=== PATIENT | female | born 1980 | race Caucasian/White ===

== ENCOUNTER 2024-01-19 08:34 | Emergency (ER) | payer OTHER ==
--- OUTSIDE RECORDS SUMMARY | 2024-01-19 08:39 | XMS REPORT | Continuity of Care Document ---
Author Name Unknown Address [address] [place] [address] [facility] Address [address] [place] [address] Care Team Providers Care Open Die Inspector Name Role Phone PALOMA CORTES Primary Care Physician Unavaila Ronal Dunn Attending Clinician Unavailable Paloma Cortes Attending Clinician [phone] PALOMA CORTES Attending Clinician Unavailable Doctor Unassigned, [place] Attending Clinician U Keren Brown MD Attending Clinician [phone] KEREN RIOJAS Attending Clinician UnavailPALOMA Hudson Admitting Clinician Unavailable Brenda Cortes Admitting Clinician Unavaildevin brooks Payers Payer Name Policy Type Policy Number Effective Date Expirati on Date Source Allergies, Adverse Reactions, Alerts Allergy Name Allergy Type Status Severity Reaction(s) Onset Date Inactive Date Treating Clinician Comments Source No Known Allergie s DA Active U 02-07 00:00: 00 [facility] No Known Allergie s DA Active U 02-07 00:00: 00 [facility] NO KNOWN ALLERGIE S Drug Class Active [facility] Social History Social Habit Start Date Stop Date Quantity Comments Source Exposure to SARS-CoV-2 (event) Not sure [facility] Tobacco use and exposure 2020-02-02 00:00:00 2020-02-02 00:00:00 Never used [facility] Tobacco Comment 2020-02-02 00:00:00 2020-02-02 00:00:00 PtDeborah Gibbons [facility] Sex Assigned At 1980 00:00:00 1980 00:00:00 [facility] Smoking Status Start Date Stop Date Source Current every day smoker 2020-02-02 00:00:00 [facility] Medications Ordered Medication Name Filled Medication Name Start Date Stop Date Current Medication? Ordering Clinician Indication Dosage Frequency Signature (SIG) Comments Components Source diclofenac 75 mg EC tablet 03-22 00:00: 00 Yes 75mg Take 1 tablet by mouth 2 (two) times daily with meals. [facility] COSENTYX PEN, 2 PENS, 150 mg/mL SC injection 01-31 00:00: [address] [facility] No known medications No Un rick [facility] No known medications No Un r[facility] Vital Signs Vital Name Observation Time Observation Value Comments S ource Systolic blood pressure 2020-03-22 20:47:00 103 mm[Hg] [facility] Diastolic blood pressure 2020-03-22 20:47:00 71 mm[Hg] [facility] Heart rate 2020-03-22 20:47:00 81 /min Unive [facility] Body weight 2020-03-22 20:47:00 52.617 kg [facility] BMI 2020-03-22 20:47:00 17.64 kg/m2 [facility] Systolic blood pressure 2020-03-22 20:47:00 103 mm[Hg] [facility] Diastolic blood pressure 2020-03-22 20:47:00 71 mm[Hg] [facility] Heart rate 2020-03-22 20:47:00 81 /min Un[facility] Body weight 2020-03-22 20:47:00 52.617 kg [facility] BMI 2020-03-22 20:47:00 17.64 kg/m2 [facility] Systolic blood pressure 2020-02-24 13:18:00 110 mm[Hg] [facility] Diastolic blood pressure 2020-02-24 13:18:00 73 mm[Hg] [facility] Heart rate 2020-02-24 13:18:00 82 /min Unive [facility] Body height 2020-02-24 13:18:00 172.7 cm [facility] Body weight 2020-02-24 13:18:00 52.617 kg [facility] BMI 2020-02-24 13:18:00 17.64 kg/m2 [facility] Systolic blood pressure 2020-02-02 20:18:00 118 mm[Hg] [facility] Diastolic blood pressure 2020-02-02 20:18:00 76 mm[Hg] [facility] Heart rate 2020-02-02 20:18:00 82 /min Unive [facility] Body height 2020-02-02 20:18:00 172 cm [facility] Body weight 2020-02-02 20:18:00 53.071 kg [facility] BMI 2020-02-02 20:18:00 17.94 kg/m2 [facility] Procedures Procedure Date / Time Performed Performing Clinicia n Source ASSIGNMENT OF BENEFITS 2021-10-19 12:45:06 Docto r Unassigned, [place] [facility] REFERRAL- REQUEST/RESPONSE 2020-03-17 05:01:00 Doctor Unassigned, [place] [facility] Encounters Start Date/Time End Date/Time Encounter Type Admission Type Attending Clinicians Care Facility Care Department Encounter ID Source 2022-05-07 12:53:00 2022-05-07 12:53:00 Outpatient PratikRonal [facility] [id number] [facility] 2021-10-19 07:46:20 2021-10-19 23:59:00 Hospital Encounter Paloma Cortes [facility] 1.2.840.114 350.1.13.10 4.2.7.2.[id number] [facility] 2021-10-19 07:46:20 2021-10-19 23:59:00 Outpatient PALOMA GUNTER [facility] [id number] [facility] 2021-10-19 00:00:00 2021-10-19 00:00:00 Orders Only Doctor Unassigned, [place] [facility] 1.2.840.114 350.1.13.10 4.2.7.2.[id number] [facility] 2021-10-11 15:00:00 2021-10-11 15:00:00 Outpatient PALOMA GUNTER [facility] RAD [id number] [facility] 2021-02-09 07:15:00 2021-02-09 07:15:00 Inpatient Ronal Ibrahim [facility] DAYS [id number] [facility] 2020-09-25 17:51:12 2020-09-25 23:59:00 Hospital Encounter Paloma Cortes [facility] 1.2.840.114 350.1.13.10 4.2.7.2.[id number] [facility] 2020-09-25 17:51:12 2020-09-25 23:59:00 Hospital Encounter Paloma Cortes [facility] 1.2.840.114 350.1.13.10 4.2.7.2.686 [id number] 2020-09-25 00:00:00 2020-09-25 00:00:00 Outpatient PALOMA GUNTER [facility] [id number] [facility] 2020-03-22 16:05:50 2020-03-22 23:59:00 Hospital Encounter Keren Riojas [facility] 1.2.840.114 350.1.13.10 4.2.7.2.[id number] [facility] 2020-03-22 15:21:19 2020-03-22 16:54:53 Office Visit Keren Riojas [facility] [place] 1.2.840.114 350.1.13.10 4.2.7.2.686 [id number] 2020-03-22 15:21:19 2020-03-22 16:54:53 Office Visit Keren Riojas [facility] [place] 1.2.840.114 350.1.13.10 4.2.7.2.[id number] [facility] 2020-03-22 16:00:53 2020-03-22 16:04:00 Hospital Encounter Keren Riojas [facility] [place] 1.2.840.114 350.1.13.10 4.2.7.2.[id number] [facility] 2020-03-22 15:30:00 2020-03-22 15:30:00 Outpatient R KEREN RIOJAS [facility] [id number] [facility] 2020-03-17 00:00:00 2020-03-17 00:00:00 Orders Only Doctor Unassigned, [place] [facility] 1.2.840.114 350.1.13.10 4.2.7.2.[id number] [facility] 2020-02-24 08:31:01 2020-02-24 23:59:00 Hospital Encounter Keren Riojas [facility] [place] 1.2.840.114 350.1.13.10 4.2.7.2.[id number] [facility] 2020-02-24 08:05:44 2020-02-24 08:41:46 Office Visit Keren Riojas [facility] [place] 1.2.840.114 350.1.13.10 4.2.7.2.[id number] [facility] 2020-02-24 08:15:00 2020-02-24 08:15:00 Outpatient R KEREN RIOJAS [facility] [id number] [facility] 2020-02-02 15:11:28 2020-02-02 15:35:14 Office Visit Keren Riojas [facility] [place] 1.2.840.114 350.1.13.10 4.2.7.2.[id number] [facility] 2020-02-02 15:15:00 2020-02-02 15:15:00 Outpatient KEREN PRAKASH [facility] [id number] [facility] Results Test Description Test Time Test Comments Results Result Co mments Source COVID 19 Asymptomatic IH [id number] 08:03:00* Test Item Value Reference Range Interpretation Comme nts COVID 19 Asymptomatic IH AG (test code = COVNONPUIAG) NEGATIVE NEGATIVE This test has be en authorized only for the detection ofproteins from SARS-CoV-2, not for any other viruses orpathogens. Negative results should be treated as presumptive andconfirmed with a molecular assay, if necessary for patientmanagement. Negative results do not rule out COVID-19 andshould not be used as the sole basis for treatment orpatient management decisions, including infection controldecisions. Negative results should be considered in thecontext of a patient's recent exposures, history and thepresence of clinical signs and symptoms consistent withCOVID-19. This test has not been FDA cleared or approved; the test hasbeen authorized by FDA under an Emergency Use Authorization(EUA) for use by laboratories certified under the CLIA thatmeet the requirements to perform moderate, high or waivedcomplexity tests. This test is authorized for use at thePoint of Care (POC), i.e., in patient care settingsoperating under a CLIA Certificate of Waiver, Certificate ofCompliance, or Certificate of Accreditation. This test is only authorized for the duration of thedeclaration that circumstances exist justifying theauthorization of emergency use of in vitro diagnostic testsfor detection and/or diagnosis of COVID-19 under Pqiffdq352(b)(1) of the Act, 21 U.S.C. 360bbb-3(b)(1), unless theauthorization is terminated or revoked sooner. HCG SERUM [id number] 16:45:00* Test Item Value Reference Range Interpretation Comme nts HCG SERUM QUAL (test code = HCGQL) NEGATIVE CBC W/AUTO [id number] 16:44:00* Test Item Value Reference Range Interpretation Comme nts WHITE BLOOD CELL (test code = WBC) 3.6 K/mm3 6.5-12.3 L RED BLOOD CELL (test code = RBC) 3.99 M/mm3 3.51-4.69 N HEMOGLOBIN (test code = HGB) 12.1 g/dL 10.1-13.8 N HEMATOCRIT (test code = HCT) 37.5 % 32.5-41.8 N MEAN CELL VOLUME (test code = MCV) 94.0 fL 84.6-96.6 N MEAN CELL HGB (test code = MCH) 30.3 pg 27.3-33.9 N MEAN CELL HGB CONCETRATION ( test code = MCHC) 32.3 gm/dL 32.0-34.2 N RED CELL DISTRIBUTION WIDTH (test code = RDW) 11.6 % 12.2-16.3 L PLATELET COUNT (test code = PLT) 203 K/mm3 134-363 N MEAN PLATELET VOLUME (test c ode = MPV) 10.9 fL 9.2-12.7 N NEUTROPHIL % (test code = NT%) 73.2 % 57.9-77.3 N LYMPHOCYTE % (test code = LY%) 17.0 % 14.5-29.7 N MONOCYTE % (test code = MO%) 8.9 % 3.6-10.2 N EOSINOPHIL % (test code = EO%) 0.3 % 0.0-3.0 N BASOPHIL % (test code = BA%) 0.3 % 0.1-0.9 N NEUTROPHIL # (test code = NT#) 2.6 K/mm3 LYMPHOCYTE # (test code = LY#) 0.6 K/mm3 MONOCYTE # (test code = MO#) 0.3 K/mm3 EOSINOPHIL # (test code = EO#) 0.01 K/mm3 BASOPHIL # (test code = BA#) 0.0 K/mm3 RBC MORPHOLOGY REQUIRED (anthony t code = RBCM) NORMAL NORMAL PLATELET MORPHOLOGY REQUIRED (test code = PLTMR) NORMAL NORMAL Notes Date/Time Note Provider Source 2021-02-09 10:42:00 [id number]/[id number] [id number] [facility] [place] [address] PATIENT NAME: ULICES REYES ADMIT DATE: 02/09/21ACCOUNT NO: [id number] ROOM NO: AGE: 40 SEX: F ADMITTING PHYSICIAN: ATTENDING PHYSICIAN: Ronal Christie III, MD OPERATION DATE: 02/09/2021 ADMITTING DIAGNOSIS: Dysfunctional uterine bleeding, probable endometrialpolyp. POSTOPERATIVE DIAGNOSIS: Dysfunctional uterine bleeding, probable endometrialpolyp. SURGEON: Ronal Christie III, MD KNOWLEDGE MANAGER: ANESTHESIA: General LMA. PROCEDURE: Diagnostic hysteroscopy, polypectomy, D and C. PROCEDURE IN DETAIL: The patient was brought to the operating room, prepped anddraped in sterile manner for vaginal procedure. Weighted speculum was placed inthe posterior, [place] anterior. Cervix was grasped with single-tooth tenaculum,sounded to approximately 7 cm, dilated to 20 Hegar dilator. A 4.2 mmhysteroscope was placed without incidence with saline distending medium anteriorand posterior surfaces were noted. Both ostia were noted. Shaggy endometriumwith suggestion of a polyp at the level of the internal os. Sharp curettage wascarried out with removal of polypoid material along with passage of a Randallstone forceps, followed with hysteroscope revealed a benign endometrium. Thespecimen submitted to pathology. The hysteroscope was removed. The sponge andneedle counts were correct at the end of the case. Estimated blood loss was 5mL. Small, if any, deficit was noted from the fluids due to hysteroscopy. Sponge and instrument counts were correct at the end of the case. Dictated By: Ronal Christie III, MD WT: OP:FJAVIER/DAIVD/NTSDD: 02/09/2021 10:42:04DT: 02/09/2021 12:36:57Conf#: [id number]/DID#: [id number] Authenticated by Ronal Christie MD On 02/13/2021 01:37:37 PM PATIENT NAME: ULICES REYES at 1337 PATIENT NAME: ULICES REYES [id number]:36:00F.[id number] lable for patient [id number]:38:06 [facility] 2021-02-08 12:05:00 [id number]+[id number]:0 5:[id number] [facility] [place] [address] PATIENT NAME: ULICES REYES ADMIT DATE: 02/09/21ACCOUNT NO: [id number] ROOM NO: AGE: 40 SEX: F ADMITTING PHYSICIAN: ATTENDING PHYSICIAN: Ronal Christie III, MD ADMISSION DATE: 02/09/2021 ADMITTING DIAGNOSES: Dysfunctional uterine bleeding, uterine polyp. HISTORY OF PRESENT ILLNESS: The patient is a 40-year-old 2, para 2,presented earlier this year with dysfunctional bleeding. Polyp was noticedversus fibroid was noticed on the ultrasound and because of the bleeding. Mendoza presents for a hysteroscope, D and C, polypectomy versus myomectomy. PAST MEDICAL HISTORY:ALLERGIES: NONE KNOWN. PAST SURGICAL HISTORY: Tubal ligation. CURRENT MEDICATIONS: Tofacitinib, hydroxychloroquine and a blood pressuremedicine. REVIEW OF SYSTEMS: Positive for psoriatic arthritis, SLE, and Raynaud's. Thereview of systems otherwise negative. SOCIAL HISTORY: Occasional alcohol. Nonsmoker. FAMILY HISTORY: Negative for breast cancer, colon cancer, and osteoporosis. PHYSICAL EXAMINATION:VITAL SIGNS: Blood pressure 110/70, weight 113 pounds, height 5 feet 8 inches.GENERAL: Well-developed, well-nourished female, in no apparentdistress.HEENT: Normocephalic. PERRLA. EOMs intact. Sclerae nonicteric. Oropharynxclear.HEART: Regular rate and rhythm. No murmur or gallop.LUNGS: Clear.EXTREMITIES: No clubbing, cyanosis, or edema.BREASTS: Without tender, mass, or discharge.ABDOMEN: Bowel sounds are positive.PELVIS: External BUS, normal female. Vagina pink lesions. Cervix withoutlesions. Uterus is upper limits of normal size and nontender. Adnexa is clear.RECTOVAGINAL: Confirms.NEUROLOGICAL: Grossly intact.MUSCULOSKELETAL: Grossly intact. IMPRESSION: Dysfunctional uterine bleeding, probable uterine polyp, systemiclupus erythematosus, arthritis and Raynaud's, history of bacterial vaginosis. PATIENT NAME: ULICES REYES PLAN: Hysteroscope, D and C, polypectomy. Informed consent, risks and benefitsof the procedure were explained to the patient including the risk of blood loss,injury to bowel, bladder, ureters; risk of infection. The patient understandsthese risks and wished to proceed with above operation. I have answered all herquestions. Dictated By: Ronal Christie III, MD WT: HP:FJAVIER/DAVID/NTSDD: 02/08/2021 12:05:14DT: 02/08/2021 12:19:04Conf#: [id number]/DID#: [id number] by Ronal Christie MD On 02/09/2021 08:19:00 AM at 0819 PATIENT NAME: ULICES REYES and physical [id number]:19:[id number] VAvailable for patient [id number]:19:35 [facility]
[2024-01-19] MEDS ORDERED: NA CHLORIDE 0.9% 1,000 ML ONE (09:08)
--- NOTE | 2024-01-19 09:13 | RAD REPORT ---
EXAM DESCRIPTION: CT - Head Brain Wo Cont - 01/19/2024 8:53 am CLINICAL HISTORY: syncope COMPARISON: No comparisons TECHNIQUE: All CT scans are performed using dose optimization technique as appropriate and may inclu de automated exposure control or mA/KV adjustment according to patient size. FINDINGS: No intracranial hemorrhage, hydrocephalus or extra-axial fluid collection.No areas of brai n edema or evidence of midline shift. The paranasal sinuses and mastoids are clear. The calvarium is intact. IMPRESSION: No acute intracranial abnormality.
[2024-01-19 09:19] LABS: Absolute Eosinophils 0.1 K/uL (0-0.5); Absolute Lymphocytes (CBC) 0.6 K/uL (0.7-4.9); Absolute Monocytes 0.3 K/uL (0.1-1.3); Absolute Neutrophil 1.7 K/uL (1.8-8.0); Basophils % 0.7 % (0-1.3); Eosinophils % 2.2 % (0-4.4); Hematocrit 34.3 % (36.0-45.0); Hemoglobin 11.4 g/dL (12.0-15.0); Lymphocytes % 23.5 % (15.3-44.8); MCH 30.7 pg (27.0-35.0); MCHC 33.3 g/dL (32.0-36.0); MCV 92.1 fL (80-100); MPV 8.6 fL (7.6-11.3); Monocytes % 9.2 % (3.3-12.3); Neutrophils % 64.4 % (41.7-73.7); Nucleated Red Blood Cells % 0.1 % (0-0); Platelets 156 thou/uL (152-406); RBC Red Blood Cell Count 3.72 M/uL (3.86-4.86); Red Cell Distribution Width 12.1 % (12.1-15.2)
--- NOTE | 2024-01-19 09:40 | RAD REPORT ---
EXAM DESCRIPTION: RAD - Chest Single View - 01/19/2024 9:34 am CLINICAL HISTORY: SYNCOPE COMPARISON: No comparisons FINDINGS: Lines: None. Lungs: No evidence of edema or pneumonia. Pleural: No significant pleural effusions or pneumothorax. Cardiac: The heart size is within normal limits. Mediastinum: Within normal limits. Bones: No acute fractures. Other: None IMPRESSION: No acute cardiopulmonary disease.
[2024-01-19 09:42] LABS: ALT/SGPT 24 U/L (13-56); AST/SGOT 13 U/L (15-37); Albumin 3.2 g/dL (3.4-5.0); Albumin/Globulin Ratio 1.3 (1.1-1.8); Alkaline Phosphatase 38 U/L (45-117); Anion Gap 7.9 mEq/L (5.0-15.0); BUN Blood Urea Nitrogen 11 mg/dL (7-18); Bicarbonate 25 mEq/L (21-32); Bilirubin Total 0.3 mg/dL (0.2-1.0); Globulin 2.5 g/dL (2.3-3.5); Glomerular Filtration Rate 90 ml/min (=/>90); Glucose Level 104 mg/dL (74-106); Magnesium 2.2 mg/dL (1.6-2.4); NT PRO-BNP 34 pg/mL (<125); Potassium 3.9 mEq/L (3.5-5.1); Protein, Total 5.7 g/dL (6.4-8.2); Sodium Level 140 mEq/L (136-145); Troponin High Sensitivity 3.2 pg/mL (<58.9)
[2024-01-19 09:44] LABS: Bilirubin Direct < 0.2 mg/dL (0-0.2); Bilirubin Indirect, Calculated 0.1 mg/dL (0.2-0.8)
--- NOTE | 2024-01-19 09:58 | ER ---
Nurse's Notes [facility] Name: Susie Keenan Age: 43 yrs Sex: Female : 1980 Arrival Date: 01/19/2024 Time: 08:34 Bed 5 Private MD: Diagnosis: Syncope Near-VASOVAGAL;Bradycardia, unspecified;Systemic lupus erythematosus, unspecified;Neutropenia, unspecified Presentation: 01/18 08:36 Chief complaint: EMS states: pt was at the [facility] getting routine labs done when kc6 she had a vasovagal episode and reported seizure activity afterwards. Coronavirus screen: At this time, the client does not indicate any symptoms associated with coronavirus-19. Ebola Screen: No symptoms or risks identified at this time. Initial Sepsis Screen: Does the patient meet any 2 criteria? No. Patient's initial sepsis screen is negative. Does the patient have a suspected source of infection? No. Patient's initial sepsis screen is negative. Risk Assessment: Do you want to hurt yourself or someone else? Patient reports no desire to harm self or others. Onset of symptoms was January 19, 2024. 08:36 Method Of Arrival: EMS: [facility] kc6 08:36 Acuity: BRIGITTE 3 kc6 08:37 Care prior to arrival: Medication(s) given: zofran 4 mg, IV initiated. 20 GA, in the kc6 right antecubital area. Triage Assessment: 08:37 General: Appears in no apparent distress. comfortable, slender, well groomed, well kc6 developed, Behavior is cooperative, appropriate for age, anxious. Pain: Denies pain. EENT: No signs and/or symptoms were reported regarding the EENT system. Neuro: Level of Consciousness is awake, alert, obeys commands, Oriented to person, place, time, situation, Appropriate for age Reports dizziness, a syncopal episode Seizure activity reported prior to arrival. Cardiovascular: Capillary refill < 3 seconds. Respiratory: Airway is patent Trachea midline Respiratory effort is even, unlabored, Respiratory pattern is regular, symmetrical. GI: Reports nausea, Patient currently denies abdominal pain, diarrhea, vomiting. : No signs and/or symptoms were reported regarding the genitourinary system. Derm: No signs and/or symptoms reported regarding the dermatologic system. Skin is intact, is healthy with good turgor, Skin is pink, warm \T\ dry. Musculoskeletal: No signs and/or symptoms reported regarding the musculoskeletal system. Circulation, motion, and sensation intact. Capillary refill < 3 seconds, Range of motion: intact in all extremities. Historical: - Allergies: 08:37 No Known Allergies; kc6 - Home Meds: 08:37 None [Active]; kc6 - PMHx: 08:37 Lupus erythematosus; raynauds; kc6 - PSHx: 08:37 tubal ligation; kc6 - Immunization history:: Adult Immunizations up to date. - Infectious Disease History:: Denies. - Social history:: Smoking status: Patient denies any tobacco usage or history of. - Family history:: not pertinent. Screenin:40 [facility] ED Fall Risk Assessment (Adult) History of falling in the last 3 months, kc6 including since admission No falls in past 3 months (0 pts) Confusion or Disorientation No (0 pts) Intoxicated or Sedated No (0 pts) Impaired Gait No (0 pts) Mobility Assist Device Used No (0 pt) Altered Elimination No (0 pt) Score/Fall Risk Level 0 - 2 = Low Risk. Abuse screen: Denies threats or abuse. Denies injuries from another. Nutritional screening: No deficits noted. Tuberculosis screening: No symptoms or risk factors identified. Assessment: 08:39 Reassessment: please see triage. kc6 09:39 Reassessment: Patient appears in no apparent distress at this time. No changes from [facility] previously documented assessment. Patient and/or family updated on plan of care and expected duration. Pain level reassessed. Patient is alert, oriented x 3, equal unlabored respirations, skin warm/dry/pink. 10:22 Reassessment: pt ambulated to bathroom at this time. denies dizziness. kc6 10:31 Reassessment: Patient appears in no apparent distress at this time. Patient and/or ph family updated on plan of care and expected duration. Pain level reassessed. Patient is alert, oriented x 3, equal unlabored respirations, skin warm/dry/pink. D/C pending UA results. Vital Signs: 08:36 BP 108 / 56; Pulse 56; Resp 16 S; Temp 97.9(O); Pulse Ox 98% on R/A; Weight 50.8 kg kc6 (R); Height 5 ft. 9 in. (R); Pain 0/10; 09:11 BP 96 / 72; Pulse 63; Resp 15 S; Pulse Ox 99% on R/A; kc6 10:50 BP 98 / 68; Pulse 67; Resp 18; Temp 97.2; Pulse Ox 99% on R/A; ph 08:36 Body Mass Index 16.54 (50.80 kg, 175.26 cm) kc6 08:36 Pain Scale: Adult [facility] ED Course: 08:36 Patient arrived in ED. [facility] 08:36 Samantha Castro, RN is Primary Nurse. kc6 08:36 Thad Alanis MD is Attending Physician. [facility] 08:37 Triage completed. kc6 08:37 Arm band placed on. kc6 08:39 Maintain EMS IV. Dressing intact. Good blood return noted. Site clean \T\ dry. Gauge \T\ cindy 6 site: 20G RAC. 08:40 Patient has correct armband on for positive identification. Bed in low position. Call [facility] light in reach. Side rails up X2. traffic monitor specialist on. Pulse ox on. NIBP on. Warm blanket given. Pillow given. 09:07 Diet: Patient given water. kc6 09:11 Door closed. Noise minimized. Lights dimmed. Warm blanket given. kc6 10:22 Assisted to bathroom. kc6 10:50 No provider procedures requiring assistance completed. IV discontinued, intact, ph bleeding controlled, No redness/swelling at site. Pressure dressing applied. Administered Medications: 08:49 Drug: NS 0.9% IV 1000 ml IV at 1 bolus Per protocol; 1000 mL bolus Route: IV; Rate: 1 kc6 bolus; Site: right antecubital; 10:50 Follow up: Response: No adverse reaction; IV Status: Completed infusion; IV Intake: ph 1000ml Medication: 10:31 VIS not applicable for this client. ph Intake: 10:50 IV: 1000ml; Total: 1000ml. ph Outcome: 09:57 Discharge ordered by . [facility] 10:50 Discharged to home ambulatory, ph 10:50 Condition: good 10:50 Discharge instructions given to patient, Instructed on discharge instructions, follow up and referral plans. Demonstrated understanding of instructions, follow-up care, 10:51 Patient left the ED. ph Signatures: Thad Aalnis MD MD cha Hall, Patricia, RN RN ph Samantha Castro RN RN kc6 Corrections: (The following items were deleted from the chart) 08:40 08:37 Care prior to arrival: Medication(s) given: zofran 4 mg, IV initiated. 20 GA, in kc6 the left antecubital area, kc6
--- NOTE | 2024-01-19 09:59 | EDPHYS ---
Physician Documentation [facility] Name: Susie Keenan Age: 43 yrs Sex: Female : 1980 Arrival Date: 01/19/2024 Time: 08:34 Bed 5 Private MD: ED Physician Thad Alanis HPI: 01/18 08:55 This 43 yrs old Female presents to ER via EMS with complaints of Syncope. naya 08:55 The patient has experienced syncope. Onset: The symptoms/episode began/occurred just naya prior to arrival. Duration: This was a single episode, that lasted 20 second(s). Context: the episode(s) was witnessed, by a bystander, lab. Associated injury: The patient did not suffer any apparent associated injury. Associated signs and symptoms: The patient has no apparent associated signs or symptoms. Current symptoms: headache, that is mild, upset. The patient has not experienced similar symptoms in the past. Historical: - Allergies: 08:37 No Known Allergies; kc6 - Home Meds: 08:37 None [Active]; kc6 - PMHx: 08:37 Lupus erythematosus; raynauds; kc6 - PSHx: 08:37 tubal ligation; kc6 - Immunization history:: Adult Immunizations up to date. - Infectious Disease History:: Denies. - Social history:: Smoking status: Patient denies any tobacco usage or history of. - Family history:: not pertinent. ROS: 08:55 Constitutional: Negative for fever, chills, and weight loss, Eyes: Negative for injury, naya pain, redness, and discharge, ENT: Negative for injury, pain, and discharge, Neck: Negative for injury, pain, and swelling, Cardiovascular: Negative for chest pain, palpitations, and edema, Respiratory: Negative for shortness of breath, cough, wheezing, and pleuritic chest pain, Abdomen/GI: Negative for abdominal pain, nausea, vomiting, diarrhea, and constipation, Back: Negative for injury and pain, : Negative for injury, bleeding, discharge, and swelling, MS/Extremity: Negative for injury and deformity, Skin: Negative for injury, rash, and discoloration, Psych: Negative for depression, anxiety, suicide ideation, homicidal ideation, and hallucinations, Allergy/Immunology: Negative for hives, rash, and allergies, Endocrine: Negative for neck swelling, polydipsia, polyuria, polyphagia, and marked weight changes, Hematologic/Lymphatic: Negative for swollen nodes, abnormal bleeding, and unusual bruising, 08:55 Neuro: Positive for seizure activity, syncope, Exam: 08:55 Constitutional: This is a well developed, well nourished patient who is awake, alert, naya and in no acute distress. Head/Face: Normocephalic, atraumatic. Eyes: Pupils equal round and reactive to light, extra-ocular motions intact. Lids and lashes normal. Conjunctiva and sclera are non-icteric and not injected. Cornea within normal limits. Periorbital areas with no swelling, redness, or edema. ENT: Nares patent. No nasal discharge, no septal abnormalities noted. Tympanic membranes are normal and external auditory canals are clear. Oropharynx with no redness, swelling, or masses, exudates, or evidence of obstruction, uvula midline. Mucous membranes moist. Neck: Trachea midline, no thyromegaly or masses palpated, and no cervical lymphadenopathy. Supple, full range of motion without nuchal rigidity, or vertebral point tenderness. No Meningismus. Chest/axilla: Normal chest wall appearance and motion. Nontender with no deformity. No lesions are appreciated. Cardiovascular: Regular rate and rhythm with a normal S1 and S2. No gallops, murmurs, or rubs. Normal PMI, no JVD. No pulse deficits. Respiratory: Lungs have equal breath sounds bilaterally, clear to auscultation and percussion. No rales, rhonchi or wheezes noted. No increased work of breathing, no retractions or nasal flaring. Abdomen/GI: Soft, non-tender, with normal bowel sounds. No distension or tympany. No guarding or rebound. No evidence of tenderness throughout. Back: No spinal tenderness. No costovertebral tenderness. Full range of motion. Skin: Warm, dry with normal turgor. Normal color with no rashes, no lesions, and no evidence of cellulitis. MS/ Extremity: Pulses equal, no cyanosis. Neurovascular intact. Full, normal range of motion. Neuro: Awake and alert, GCS 15, oriented to person, place, time, and situation. Cranial nerves II-XII grossly intact. Motor strength 5/5 in all extremities. Sensory grossly intact. Cerebellar exam normal. Normal gait. Psych: Awake, alert, with orientation to person, place and time. Behavior, mood, and affect are within normal limits. 08:55 ECG was reviewed by the Attending Physician. 10:03 Musculoskeletal/extremity: Extremities: all appear grossly normal, with no appreciated naya pain with palpation, ROM: no acute changes, intact in all extremities, full active range of motion, full passive range of motion, Circulation is intact in all extremities. Compartment Syndrome exam of affected extremity: is normal. DVT Exam: No signs of deep vein thrombosis. no pain, no swelling, no tenderness, negative Homans' sign noted on exam, no appreciated bluish discoloration, no erythema, no increased warmth, Vital Signs: 08:36 BP 108 / 56; Pulse 56; Resp 16 S; Temp 97.9(O); Pulse Ox 98% on R/A; Weight 50.8 kg kc6 (R); Height 5 ft. 9 in. (R); Pain 0/10; 09:11 BP 96 / 72; Pulse 63; Resp 15 S; Pulse Ox 99% on R/A; kc6 10:50 BP 98 / 68; Pulse 67; Resp 18; Temp 97.2; Pulse Ox 99% on R/A; ph 08:36 Body Mass Index 16.54 (50.80 kg, 175.26 cm) kc6 08:36 Pain Scale: Adult kc6 MDM: 08:36 Patient medically screened. naya 08:36 Patient medically screened. naya 09:00 Differential Diagnosis: cardiac arrhythmia, cerebrovascular accident, drug effect, naya emotional response, seizure, sepsis, vasovagal episode. Data reviewed: vital signs, nurses notes, lab test result(s), EKG, radiologic studies. Consideration of Admission/Observation Escalation of care including admission/observation considered. I considered the following discharge prescriptions or medication management in the emergency department Medications were administered in the Emergency Department. See MAR. Independent interpretation of the following test(s) in the Emergency Department EKG: See my EKG interpretation above. Test considered but Not performed: MRI: no mri brain. Care significantly affected by the following chronic conditions: SLE, RAYNAUDS. 01/18 08:39 Order name: Urinalysis w/ reflexes naya 01/18 08:39 Order name: PREGU [facility] 01/18 09:23 Order name: CBC with Automated Diff; Complete Time: 09:57 EDMS 01/18 09:44 Order name: Basic Metabolic Panel; Complete Time: 09:57 EDMS 01/18 09:44 Order name: Liver (Hepatic) Function; Complete Time: 09:57 EDMS 01/18 09:44 Order name: Troponin High Sensitivity; Complete Time: 09:57 EDMS 01/18 09:44 Order name: NT PRO-BNP; Complete Time: 09:57 EDMS 01/18 09:44 Order name: Magnesium; Complete Time: 09:57 EDMS 01/18 09:14 Order name: CT; Complete Time: 09:20 EDMS 01/18 09:40 Order name: RAD; Complete Time: 09:57 EDMS 01/18 08:39 Order name: Cardiac monitoring; Complete Time: 08:41 naya 01/18 08:39 Order name: EKG - Nurse/Tech; Complete Time: 08:49 naya 01/18 08:39 Order name: IV Saline Lock; Complete Time: 08:41 naya 01/18 08:39 Order name: Labs collected and sent; Complete Time: 09:07 naya 01/18 08:39 Order name: O2 Per Protocol; Complete Time: 08:41 naya 01/18 08:39 Order name: O2 Sat Monitoring; Complete Time: 08:41 naya 01/18 10:01 Order name: PO challenge; Complete Time: 10:16 naya 01/18 10:01 Order name: Orthostatics; Complete Time: 10:22 naya EC:55 Rate is 48 beats/min. Rhythm is regular. QRS [place] is Normal. [place] interval is normal. QRS naya interval is normal. QT interval is normal. No Q waves. T waves are Normal. No ST changes noted. Clinical impression: Sinus bradycardia and No evidence of ischemia. Interpreted by me. Reviewed by me. Administered Medications: 08:49 Drug: NS 0.9% IV 1000 ml IV at 1 bolus Per protocol; 1000 mL bolus Route: IV; Rate: 1 kc6 bolus; Site: right antecubital; 10:50 Follow up: Response: No adverse reaction; IV Status: Completed infusion; IV Intake: ph 1000ml Disposition Summary: 01/19/24 09:57 Discharge Ordered Notes: Location: Home naya Problem: new naya Symptoms: have improved naya Condition: Stable naya Diagnosis - Syncope Near - VASOVAGAL naya - Bradycardia, unspecified naya - Systemic lupus erythematosus, unspecified naya - Neutropenia, unspecified naya Followup: naya - With: Private Physician - When: 2 - 3 days - Reason: Recheck today's complaints, Re-evaluation by your physician Discharge Instructions: - Discharge Summary Sheet naya - Bradycardia, Adult naya - Near-Syncope naya - Systemic Lupus Erythematosus, Adult naya - Near-Syncope, Laxn-ic-Riin naya - Neutropenia naya - Weakness, [id number] naya Forms: - Medication Reconciliation Form naya - Antibiotic Education naya - Prescription Opioid Use naya - Patient Portal Instructions naya - Leadership Thank You Letter naya Signatures: Dispatcher [employer] EDMS Thad Alanis MD MD cha Campbell, Kaitlyn RN RN kc6 Kelli Lee RN ph Corrections: (The following items were deleted from the chart) 10:05 10:05 BASIC METABOLIC PANEL+C.LAB.BRZ ordered. EDMS EDMS 10:05 10:05 CBC+H.LAB.BRZ ordered. EDMS EDMS 10:05 10:05 HEPATIC FUNCTION+C.LAB.BRZ ordered. EDMS EDMS 10:05 10:05 MAGNESIUM+C.LAB.BRZ ordered. EDMS EDMS 10:05 10:05 PROBNP+C.LAB.BRZ ordered. EDMS EDMS 10:05 10:05 Troponin High Sensitivity+C.LAB.BRZ ordered. EDMS EDMS 10:05 10:05 Urinalysis+U.LAB.BRZ ordered. EDMS EDMS 10:05 10:05 Test, Urine+UC.LAB.BRZ ordered. EDMS EDMS 10:05 10:05 Chest Single View+RAD.RAD.BRZ ordered. EDMS EDMS 10:05 10:05 Head Brain Wo Cont+CT.RAD.BRZ ordered. EDMS EDMS
[2024-01-19 10:44] LABS: Specific Gravity 1.016 (1.005-1.030); Sqamous Epithelial <5 /HPF (None Seen); Urine Bacteria <20 /HPF (<20); Urine Bilirubin NEGATIVE (Negative); Urine Blood Negative (Negative); Urine Clarity Extremely Turbid (Clear); Urine Color Light-Yellow (Yellow); Urine Culture Reflex Order NOT NEEDED; Urine Glucose NEGATIVE (Negative); Urine Ketones 1+ (Negative); Urine Microscopic Reflex YN ORDER UMIC; Urine Mucus Slight /HPF (None Seen); Urine Nitrite NEGATIVE (Negative); Urine Protein NEGATIVE (Negative); Urine RBC <5 /HPF (None Seen); Urine Urobilinogen Normal (Normal); Urine WBC <5 /HPF (<5)
[2024-01-19 11:33] VITALS: BP 98/68; TEMP 97.2; O2SAT 99
--- NOTE | 2024-01-20 14:35 | EKG ---
Test Date: 2024-01-19 Test Time: 08:47:20 Instructor Business Education: DANIEL MEASUREMENT RESULTS: Intervals: Rate: 48 MO: 162 QRSD: 86 QT: 462 QTc: 412 [place]: P: 80 MO: 162 QRS: 94 T: 71 INTERPRETIVE STATEMENTS: Marked sinus bradycardia Abnormal ECG No previous ECG available for comparison Electronically Signed On 01-20-24 14:32:52 CDT by Napoleon Perez
== END 2024-01-19 10:51 | disposition home or self-care (01) ==
LOC: ER 08:34
DX: R55 Syncope and collapse (principal); R00.1 Bradycardia, unspecified; M32.9 Systemic lupus erythematosus, unspecified; D70.9 Neutropenia, unspecified
CPT/HCPCS: 96361; 93005; 85025; 81001; 80048; 36415; 83735; 81025; 80076; 84484; 83880; 70450; 71045; 96360; 99285; J7030